=== PATIENT | female | born 1995 | race Caucasian/White ===

== ENCOUNTER 2016-03-08 08:44 | Emergency (ER) | payer BC, MEDICAID ==
[2016-03-08] MEDS ORDERED: fentaNYL 100 MCG/2 ML INJ ONE (09:03)
[2016-03-08] MEDS ORDERED: fentaNYL 100 MCG/2 ML INJ IVP ONE (09:10)
[2016-03-08] MEDS ORDERED: NS 1,000 ML IV ONE (09:12)
[2016-03-08 09:26] LABS: % IMMATURE GRANULYOCYTES 0.2 % (0.0-1.1); ABSOLUTE IMMATURE GRANULOCYTES 0.01 10^3/uL (0.00-0.10); ADD DIFF? NO; ADD MORPH? NO; ADD SCAN? NO; ATYPICAL LYMPHOCYTE FLAG 10 (0-99); FRAGMENT RBC FLAG 0 (0-99); HEMATOCRIT 42.1 % (38.0-47.0); HEMOGLOBIN 14.7 g/dL (12.6-16.3); LEFT SHIFT FLG 0 (0-99); LIPEMIA HEMOLYSIS FLAG 90 (0-99); MEAN CELL HEMOGLOBIN 28.2 pg (27.9-34.1); MEAN CELL HEMOGLOBIN CONCENTR. 34.9 g/dL (32.4-36.7); MEAN CELL VOLUME 80.7 fL (81.5-99.8); MEAN PLATELET VOLUME 9.6 fL (8.7-11.7); PLATELET CLUMPS FLAG 0 (0-99); PLATELET COUNT 283 10^3/uL (150-400); RED BLOOD CELL COUNT 5.22 10^6/uL (4.18-5.33); RED CELL DISTRIBUTION WIDTH 13.2 % (11.5-15.2)
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
[2016-03-08 09:45] LABS: AMYLASE 57 IU/L (30-110); ANION GAP 10 mEq/L (8-16); CALCIUM 8.9 mg/dL (8.5-10.4); CARBON DIOXIDE 20 mEq/l (22-31); CHLORIDE 110 mEq/L (97-110); CREATININE 0.7 mg/dL (0.6-1.0); GLOMERULAR FILTRATION RATE > 60; GLUCOSE 92 mg/dL (70-100); POTASSIUM 4.5 mEq/L (3.5-5.2); SODIUM 140 mEq/L (134-144); SPECIMEN HEMOLYSIS 107
[2016-03-08] MEDS ORDERED: LETS SOLN TOPICAL 1 EA SYR TP ONE (10:19)
[2016-03-08] MEDS ORDERED: ONDANSETRON 4 MG/2 ML VIAL IVP ONE (10:33)
[2016-03-08] MEDS ORDERED: ONDANSETRON 4 MG/2 ML VIAL ONE (10:33)
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
[2016-03-08] MEDS ORDERED: OXYCODONE/APAP 5/325 TAB PO ONE (10:49)
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
[2016-03-08 11:29] VITALS: RESP 18
[2016-03-08 11:41] VITALS: BP 112/71; PULSE 74; TEMP 98.4; O2SAT 96
== END 2016-03-08 11:38 | disposition home or self-care (01) ==
LOC: EDBD → EDUNIT#
DX: S09.90XA Unspecified injury of head, initial encounter (principal); S39.92XA Unspecified injury of lower back, initial encounter; S13.4XXA Sprain of ligaments of cervical spine, initial encounter; J45.909 Unspecified asthma, uncomplicated; F17.200 Nicotine dependence, unspecified, uncomplicated; Z91.040 Latex allergy status; V49.49XA Driver injured in collision with other motor vehicles in traffic accident, initial encounter; Y92.410 Unspecified street and highway as the place of occurrence of the external cause; Y99.8 Other external cause status; Y93.89 Activity, other specified
CPT/HCPCS: 96374; J2405; J3010

== ENCOUNTER 2016-07-06 15:21 | Emergency (ER) | payer BC, MEDICAID ==
[2016-07-06 16:27] LABS: COLOR YELLOW; LEUKOCYTE ESTERASE,URINE 2+ (NEGATIVE); NITRITE,URINE NEGATIVE (NEGATIVE)
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
[2016-07-06 16:34] LABS: MUCUS 4+ /lpf (NONE-1+); WBC,URINE 15-25 /hpf (0-3); YEAST PRESENT /hpf (NONE SEEN)
[2016-07-06 17:27] VITALS: BP 131/75; PULSE 79; RESP 16; TEMP 97.8; O2SAT 99
[2016-07-07 13:10] LABS: CHLAMYDIA AMPLIFICATION GENPRB NEGATIVE (NEGATIVE)
== END 2016-07-06 17:25 | disposition home or self-care (01) ==
DX: O23.591 Infection of other part of genital tract in pregnancy, first trimester (principal); J45.909 Unspecified asthma, uncomplicated; B37.3 Candidiasis of vulva and vagina; Z3A.11 11 weeks gestation of pregnancy; Z87.891 Personal history of nicotine dependence; Z91.040 Latex allergy status

== ENCOUNTER → 2016-08-31 | Outpatient (CLI) | payer BC, MEDICAID | LOC: FIMAGING 13:08 | PROVIDERS: ATTEND Midwife | DX: O99.212 Obesity complicating pregnancy, second trimester (principal); O44.02 Complete placenta previa NOS or without hemorrhage, second trimester; Z3A.19 19 weeks gestation of pregnancy ==

== ENCOUNTER 2017-04-27 12:45 | Emergency (ER) | payer BC, MEDICAID ==
[2017-04-27 13:06] VITALS: RESP 16
--- NOTE | 2017-04-27 14:00 | EDPHY ---
H & P Time Seen by Provider: 04/27/17 12:56 HPI/ROS: 18-year-old female presents complaining of 2 days of cough, body aches, fevers chills and runny nose. Review of systems As per HPI General positive fever positive chills no weakness HEENT no eye pain no eye discharge. No eye redness, no sore throat Respiratory positive cough no shortness of breath Cardiac no chest pain, no peripheral edema GI no abdominal pain, no diarrhea, no constipation, no nausea, no vomiting no flank pain, no hematuria, no dysuria Musculoskeletal no myalgias, no joint pain Heme no easy bruising, no easy bleeding Endo no polyuria, no polydipsia Skin no rashes, no pruritus Neuro no syncope, no dizziness, no headaches Psych is no suicidal ideation, no homicidal ideation Past Medical/Surgical History: Non contributory Social History: Smokes daily, occasional alcohol Unknown drug use Smoking Status: Current every day smoker Physical Exam: 21-year-old female Alert and oriented nontoxic appearance, no acute distress afebrile Atraumatic normocephalic Extraocular muscles intact, anicteric Nares mild yellowish discharge Oropharynx mild erythema no tonsillar swelling no exudate no uvular deviation, tolerating own secretions Neck supple no lymphadenopathy Lungs clear to auscultation bilaterally Heart regular rate and rhythm Abdomen normoactive bowel sounds soft nontender Extremities no cyanosis clubbing or edema Skin no rash Constitutional: Initial Vital Signs Temperature (C) 36.9 C 04/27/17 13:03 Heart Rate 104 H 04/27/17 13:03 Respiratory Rate 16 04/27/17 13:03 Blood Pressure 119/72 04/27/17 13:03 O2 Sat (%) 96 04/27/17 13:03 O2 Delivery Mode Room Air Allergies/Adverse Reactions: latex Allergy (Verified 04/27/17 13:02) Home Medications: Medication Instructions Recorded Albuterol PRN 04/27/17 Ibuprofen 600 mg PO Q6 PRN #20 tablet 04/27/17 Oseltamivir Phosphate [Tamiflu 75 75 mg PO BID #10 cap 04/27/17 mg (*)] Medical Decision Making ED Course/Re-evaluation: Patient seen and evaluated for cough, myalgias, fevers chills and runny nose. Despite her symptoms she does not appear toxic and is currently afebrile with no respiratory distress. Influenza A positive Impression Influenza Plan Tamiflu 75 mg p.o. Twice daily Symptomatic care, rest, fluids, ibuprofen and/or acetaminophen as needed Follow-up with your primary care physician in 1 week Differential Diagnosis: Differential diagnosis considered but not limited to: URI, bronchitis, pharyngitis, viral syndrome, influenza - Data Points Laboratory Results: 04/27/17 13:00 Influenza A,B Rapid POSITIVE FOR FLU A H (NEGATIVE) Departure - Departure Disposition: Home, Routine, Self-Care Clinical Impression: Influenza A Condition: Good Instructions: Influenza (ED) Referrals: NONE *PRIMARY CARE P,. [Primary Care Provider] - As per Instructions Prescriptions: Ibuprofen 600 mg PO Q6 PRN #20 tablet PRN Reason: Fever Greater Than 38.3 C Oseltamivir Phosphate [Tamiflu 75 mg (*)] 75 mg PO BID #10 cap
[2017-04-27 14:28] VITALS: BP 124/78; PULSE 96; TEMP 98.2; O2SAT 95
== END 2017-04-27 14:25 | disposition home or self-care (01) ==
LOC: CED 12:45
DX: J10.1 Influenza due to other identified influenza virus with other respiratory manifestations (principal); F17.200 Nicotine dependence, unspecified, uncomplicated; Z91.040 Latex allergy status
CPT/HCPCS: 87400-PO